=== PATIENT | female | born 1985 ===

== ENCOUNTER 2017-11-02 14:15 | Emergency (ER) | payer MEDICAID ==
[2017-11-02 14:28] VITALS: TEMP 98.7
[2017-11-02] MEDS ORDERED: Lactated Ringer's 1,000 ML IV STA (15:13)
--- NOTE | 2017-11-02 15:30 | ED PDOC ---
HPI: Female Pain Time Seen by Provider: 11/02/17 14:57 Chief Complaint (Nursing): Abdominal Pain History Per: Patient History/Exam Limitations: no limitations Current Symptoms Are (Timing): Still Present Additional Complaint(s): Ms. Griffin is a 32 year old female who presents to ED for vaginal bleeding that started 10 days ago as spotting. Patient states it was around the time she was supposed to get her period and did not think it was abnormal. 6 days ago started to be heavy. Associated with crampy pain and more heaviness yesterday. States she passed tissue. May be having a miscarriage. Denies missing any periods. Normal periods on August and September. Reports some nausea since August associated with stomach bug. Also had diarrhea. States she has been seen by her doctors for her nausea and stomach pain and was on bentyl, zofran, and antacid PMD: Adalberto Richter ([place]) Past Medical History Reviewed: Historical Data, Nursing Documentation, Vital Signs Vital Signs: Last Vital Signs Temp 98.7 F 11/02/17 14:49 Pulse 89 11/02/17 14:49 Resp 20 11/02/17 14:49 BP 120/83 11/02/17 14:49 Pulse Ox 98 11/02/17 14:49 - Medical History Other PMH: Umblicial hernia repair (as in ) - Family History Family History: States: Unknown Family Hx - Social History Current smoker - smoking cessation education provided: Yes Alcohol: Occasional - Allergies Allergies/Adverse Reactions: Allergies Allergy/AdvReac Type Severity Reaction Status Date / Time latex AdvReac RASH Verified 11/02/17 14:49 Review of Systems ROS Statement: Except As Marked, All Systems Reviewed And Found Negative Gastrointestinal: Positive for: Nausea, Abdominal Pain Genitourinary Female: Positive for: Vaginal Bleeding Physical Exam - Reviewed Nursing Documentation Reviewed: Yes Vital Signs Reviewed: Yes - Physical Exam Appears: Positive for: In Acute Distress Head Exam: Positive for: ATRAUMATIC, NORMOCEPHALIC Skin: Positive for: Warm, Dry Cardiovascular/Chest: Positive for: Regular Rate, Rhythm. Negative for: Murmur Respiratory: Positive for: Normal Breath Sounds. Negative for: Accessory Muscle Use, Respiratory Distress Gastrointestinal/Abdominal: Positive for: Soft, Tenderness (Tenderness to bilateral lower quadrants, epigastric and suprapubic areas). Negative for: Mass , Distended, Guarding, Rebound Extremity: Positive for: Normal ROM. Negative for: Deformity Lymphatic: Negative for: Adenopathy Neurologic/Psych: Positive for: Alert. Negative for: Motor/Sensory Deficits - Laboratory Results Result Diagrams: 11/02/17 15:53 11/02/17 15:53 - ECG O2 Sat by Pulse Oximetry: 98 (RA) Pulse Ox Interpretation: Normal Medical Decision Making Medical Decision Making: Time: 15:12 Impression(s): Vaginal Bleeding, Pelvic Pain Differentials include, but not limited to: Miscarriage, abnormal vaginal bleeding, bleeding disorder Plan: - Type and Screen - Beta-hCG, Quantitative - cmp - ED Urine - ED Urine Dipstick - CBC - Partial Thromboplastin Time - Prothrombin Time - Lactated Ringer's 1,000 ml IV 1,000 mls/hr (+) ED Urine Beta hCG, Quantitative reveals 112.55 mIU/mL Time: 16:33 OB Transvaginal Accession No. : [id number] Patient Name / ID : ANNMARIE GRIFFIN / [id number] Exam Date : 11/02/2017 17:09:46 ( Approved ) Study Comment : Sex / Age : F / 32Y Creator : Frantz Marie MD Dictator : Frantz Marie MD Copywriting Intern : Sign Designer : Frantz Marie MD Approver2 : Report Date : 11/02/2017 17:55:21 My Comment : HISTORY: Vaginal bleeding. LMP 10/25/2017. Beta HCG results: 112.5 COMPARISON: None available. TECHNIQUE: Transabdominal, transvaginal. Real -time technique with 2D, duplex and color Doppler. FINDINGS: UTERUS: Measures 4.4 x 5.1 x 8 cm. Normal in size and appearance. No fibroid or other mass lesion seen. ENDOMETRIUM: Measures 6.5 mm in diameter. No ultrasound findings to suggest gestational sac, fluid, debris, mass or polyp or other pathologic process within the endometrium. CERVIX: No cervical abnormality identified.Incidental finding: Nabothian cysts the largest measures less than 1 cm RIGHT OVARY: Measures 2 x 2.7 cm. No solid mass. Normal flow. LEFT OVARY: Measures 1.8 x 2 point a cm. No solid mass. Normal flow. Multiple subcentimeter follicles. FREE FLUID: No significant free fluid noted. OTHER FINDINGS: None. IMPRESSION: No significant or acute findings to account for/ related to the clinical presentation. DW pt findings. Clinical presentation and bloodwork most c/w miscarriage. Pt understands need to return in 48 hours for repeat blood work to confirm. Bleeding and pain precautions given. Scribe Attestation: Documented by Eugene Tyson, acting as a scribe for Millie Shipley MD. Provider Scribe Attestation: All medical record entries made by the Scribe were at my direction and personally dictated by me. I have reviewed the chart and agree that the record accurately reflects my personal performance of the history, physical exam, medical decision making, and the department course for this patient. I have also personally directed, reviewed, and agree with the discharge instructions and disposition. Disposition - Clinical Impression Clinical Impression: Threatened miscarriage Counseled Patient/Family Regarding: Studies Performed, Diagnosis, Need For Followup - Disposition Disposition: Routine/Home Disposition Time: 18:17 Condition: STABLE Additional Instructions: DRINK PLENTY OF HYDRATING FLUIDS AND REST TAKE TYLENOL NEEDED FOR PAIN RETURN IN 48 HOURS FOR REPEAT BLOODWORK. Instructions: Threatened Miscarriage Forms: [facility] ED School/Work Excuse
[2017-11-02 16:02] LABS: BASO # 0.1 K/uL (0.0-0.2); BASO % 0.5 % (0.0-2.0); EOS # 0.2 K/uL (0.0-0.7); EOS % 1.8 % (0.0-4.0); HEMOGLOBIN 13.1 g/dL (12.0-16.0); LYMPH # 2.7 K/uL (1.0-4.3); MEAN CELL VOLUME 85.9 fl (81.0-99.0); MEAN CORPUSCULAR HEMOGLOBIN 28.4 pg (27.0-31.0); MEAN CORPUSCULAR HGB CONC 33.1 g/dL (33.0-37.0); MEAN PLATELET VOLUME 9.1 fl (7.2-11.7); MONO # 0.6 K/uL (0.0-0.8); MONO % 5.4 % (0.0-10.0); NEUT # 7.3 K/uL (1.8-7.0); NEUT % 67.3 % (50.0-75.0); NRBC % 0.1 % (0.0-0.0); RBC 4.62 Mil/uL (3.80-5.20); WHITE BLOOD COUNT 10.8 K/uL (4.8-10.8)
[2017-11-02 16:20] LABS: ALB/GLOB RATIO 1.1 (1.0-2.1); ALBUMIN 4.5 g/dL (3.5-5.0); ALT/SGPT 38 U/L (9-52); AST/SGOT 33 U/L (14-36); BLOOD UREA NITROGEN 8 mg/dl (7-17); CALCIUM 9.6 mg/dL (8.4-10.2); GFR AFRICAN-AMERICAN > 60; GFR NON-AFRICAN AMERICAN > 60
[2017-11-02 16:28] LABS: INR 1.1 (0.9-1.2); PARTIAL THROMBOPLASTIN TIME 32.2 Seconds (25.6-37.1); PROTHROMBIN TIME 11.7 Seconds (9.8-13.1)
--- NOTE | 2017-11-02 17:56 | US ---
HISTORY: Vaginal bleeding. LMP 10/25/2017. Beta HCG results: 112.5 COMPARISON: None available. TECHNIQUE: Transabdominal, transvaginal. Real -time technique with 2D, duplex and color Doppler. FINDINGS: UTERUS: Measures 4.4 x 5.1 x 8 cm. Normal in size and appearance. No fibroid or other mass lesion seen. ENDOMETRIUM: Measures 6.5 mm in diameter. No ultrasound findings to suggest gestational sac, fluid, debris, mass or polyp or other pathologic process within the endometrium. CERVIX: No cervical abnormality identified.Incidental finding: Nabothian cysts the largest measures less than 1 cm RIGHT OVARY: Measures 2 x 2.7 cm. No solid mass. Normal flow. LEFT OVARY: Measures 1.8 x 2 point a cm. No solid mass. Normal flow. Multiple subcentimeter follicles. FREE FLUID: No significant free fluid noted. OTHER FINDINGS: None. IMPRESSION: No significant or acute findings to account for/ related to the clinical presentation.
[2017-11-02 18:07] VITALS: BP 122/77; PULSE 68; RESP 16
[2017-11-02 18:17] VITALS: O2SAT 98
== END 2017-11-02 18:23 | disposition home or self-care (01) ==
LOC: H.ER 14:15 → SUPCPDRO 14:15 → H.ER 18:23
DX: O03.9 Complete or unspecified spontaneous abortion without complication (principal)
CPT/HCPCS: 76817; 80053; 81025; 84702; 85025; 85610; 85730; 86850; 86900; 96360; 99285; J7120

== ENCOUNTER 2017-11-04 12:14 | Emergency (ER) | payer MEDICAID ==
--- NOTE | 2017-11-04 15:01 | ED PDOC ---
HPI: Female Pain Time Seen by Provider: 11/04/17 12:31 Chief Complaint (Nursing): Female Genitourinary Chief Complaint (Provider): Abdominal pain History Per: Patient History/Exam Limitations: no limitations Additional Complaint(s): Pt reports for repeat beta hCG. Was evaluated 2 days ago, states bleeding has resolved but abdominal pain now on L lower side. Denies fever, nausea, vomiting , vaginal discharge. Past Medical History Reviewed: Nursing Documentation, Vital Signs Vital Signs: Last Vital Signs Temp 98.7 F 11/04/17 12:27 Pulse 81 11/04/17 12:27 Resp 16 11/04/17 12:27 BP 117/78 11/04/17 12:27 Pulse Ox 100 11/04/17 12:27 - Medical History PMH: No Chronic Diseases - Family History Family History: States: Unknown Family Hx - Social History Current smoker - smoking cessation education provided: No - Immunization History Hx Tetanus Toxoid Vaccination: No Hx Influenza Vaccination: No Hx Pneumococcal Vaccination: No - Allergies Allergies/Adverse Reactions: Allergies Allergy/AdvReac Type Severity Reaction Status Date / Time latex AdvReac RASH Verified 11/04/17 12:27 Review of Systems Constitutional: Negative for: Fever, Chills Cardiovascular: Negative for: Chest Pain Respiratory: Negative for: Cough, Shortness of Breath Gastrointestinal: Positive for: Abdominal Pain. Negative for: Nausea, Vomiting , Diarrhea Genitourinary Female: Negative for: Dysuria, Hematuria, Vaginal Bleeding Musculoskeletal: Negative for: Back Pain Skin: Negative for: Rash, Lesions Neurological: Negative for: Headache Physical Exam - Reviewed Nursing Documentation Reviewed: Yes Vital Signs Reviewed: Yes - Physical Exam Appears: Positive for: Well, No Acute Distress Skin: Positive for: Normal Color, Warm, Dry Eye Exam: Positive for: Normal appearance, EOMI, PERRL Cardiovascular/Chest: Positive for: Regular Rate, Rhythm Respiratory: Positive for: Normal Breath Sounds Gastrointestinal/Abdominal: Positive for: Bowel Sounds, Soft, Tenderness (LLQ ) . Negative for: Guarding, Rebound Back: Positive for: Normal Inspection. Negative for: L CVA Tenderness, R CVA Tenderness Extremity: Positive for: Normal ROM Neurologic/Psych: Positive for: Alert, Oriented - ECG O2 Sat by Pulse Oximetry: 100 - Physician Consult Information Time Consulting Physican Contacted: 15:08 Physician Contacted: Makayla Hermosillo Outcome Of Conversation: Recommends pelvic ultrasound. Medical Decision Making Medical Decision Makin yo female with LLQ pain. - beta hCG Disposition - Clinical Impression Clinical Impression: Abdominal pain - Disposition [facility] - 11[facility]/17 Disposition Time: 15:00 Condition: STABLE Additional Instructions: Return if not better in 3 days. You likely have a miscarriage, but we must consider ectopic . Return in 1 week or see clinic for repeat ultrasound and beta hcg level. Return if any pain, excessive bleeding, dizziness, weakness, or uncomfortable. Instructions: Miscarriage Forms: [employer] (Belizean) Patient Signed Over To: Hunter Rebolledo
[2017-11-04] MEDS ORDERED: Oxycodone/Acetaminophen 5/325 mg Tab PO STA (15:08)
[2017-11-04] MEDS ORDERED: Oxycodone/Acetaminophen 5/325 mg Tab ONE (15:28)
--- NOTE | 2017-11-04 15:52 | ED PDOC ---
- ECG O2 Sat by Pulse Oximetry: 100 - Progress ED Course And Treament: 1551: Took over care from Dr. Perry. [place] [facility] [place] Pt. possible miscarriage. Dr. Hermosillo wants US. US on 11/02 was with no IUP. Pt. had clots coming out at that time. 1745: Stable. Spoke with Dr. Hermosillo. Made aware of history, findings, clinical presenation. Considering beta dropping and no US findings with bleeding, pt. likely miscarriage. Pt. to repeat beta in 1 week. Pt. pain free. Tolerates po. Ectopic in differential, but less likely. Repeat US in 1 week. Disposition - Clinical Impression Clinical Impression: Miscarriage - POA Present On Arrival: None - Disposition [facility] - 11/06/17 Disposition: Routine/Home Disposition Time: 17:49 Condition: STABLE Additional Instructions: Return if not better in 3 days. You likely have a miscarriage, but we must consider ectopic . Return in 1 week or see clinic for repeat ultrasound and beta hcg level. Return if any pain, excessive bleeding, dizziness, weakness, or uncomfortable. Instructions: Miscarriage Forms: [employer] (Japanese)
[2017-11-04 17:01] VITALS: BP 110/78; RESP 19
--- NOTE | 2017-11-04 17:34 | US ---
PROCEDURE: HISTORY: Vag bleeding, LLQ pain COMPARISON: TECHNIQUE: FINDINGS: The uterus is normal in size. The endometrium measures 3 millimeters. Both ovaries have a normal sonographic appearance. IMPRESSION: No intrauterine seen. Ectopic is not excluded.
[2017-11-04] MEDS ORDERED: Oxycodone/Acetaminophen 5/325 mg Tab PO ONE (18:12)
[2017-11-04 18:19] VITALS: PULSE 78; TEMP 98
[2017-11-06 15:55] VITALS: O2SAT 100
== END 2017-11-04 18:26 | disposition home or self-care (01) ==
LOC: H.ER 12:14
DX: O03.9 Complete or unspecified spontaneous abortion without complication (principal)

== ENCOUNTER 2017-11-11 14:18 | Emergency (ER) | payer MEDICAID ==
--- NOTE | 2017-11-11 15:08 | ED PDOC ---
HPI: Female Pain Time Seen by Provider: 11/11/17 14:25 Chief Complaint (Nursing): Female Genitourinary Chief Complaint (Provider): Repeat beta Additional Complaint(s): Pt reports vaginal bleeding stopped 3 days ago and then started spotting today, mild lower crampy abdominal pain. Denies fever, nausea, vomiting. Abnormal Vaginal Bleeding: Yes Past Medical History Reviewed: Nursing Documentation, Vital Signs Vital Signs: Last Vital Signs Temp 98.2 F 11/11/17 14:21 Pulse 77 11/11/17 14:21 Resp 16 11/11/17 14:21 BP 123/82 11/11/17 14:21 Pulse Ox 99 11/11/17 14:21 - Medical History PMH: No Chronic Diseases - Family History Family History: States: Unknown Family Hx - Immunization History Hx Tetanus Toxoid Vaccination: No Hx Influenza Vaccination: No Hx Pneumococcal Vaccination: No - Allergies Allergies/Adverse Reactions: Allergies Allergy/AdvReac Type Severity Reaction Status Date / Time latex AdvReac RASH Verified 11/04/17 12:27 Review of Systems Constitutional: Negative for: Fever, Chills Cardiovascular: Negative for: Chest Pain Respiratory: Negative for: Cough, Shortness of Breath Gastrointestinal: Positive for: Abdominal Pain. Negative for: Nausea, Vomiting , Diarrhea Genitourinary Female: Positive for: Vaginal Bleeding. Negative for: Dysuria, Hematuria Musculoskeletal: Negative for: Neck Pain, Back Pain Skin: Negative for: Rash, Lesions Neurological: Negative for: Headache Physical Exam - Reviewed Nursing Documentation Reviewed: Yes Vital Signs Reviewed: Yes - Physical Exam Appears: Positive for: Well, No Acute Distress Skin: Positive for: Normal Color, Warm, Dry Eye Exam: Positive for: Normal appearance, EOMI, PERRL Cardiovascular/Chest: Positive for: Regular Rate, Rhythm Respiratory: Positive for: Normal Breath Sounds Gastrointestinal/Abdominal: Positive for: Bowel Sounds, Soft, Tenderness (Mild R suprapubic). Negative for: Distended, Guarding, Rebound Extremity: Positive for: Normal ROM Neurologic/Psych: Positive for: Alert, Oriented - ECG O2 Sat by Pulse Oximetry: 99 - Physician Consult Information Time Consulting Physican Contacted: 15:18 Physician Contacted: Arnoldo Russo Outcome Of Conversation: Repeat beta hCG in 48 hours. Medical Decision Making Medical Decision Makin yo female with vaginal spotting. - beta hCG Disposition - Clinical Impression Clinical Impression: Threatened miscarriage - Disposition [facility] Disposition: Routine/Home Disposition Time: 15:19 Condition: STABLE Additional Instructions: RETURN TO ED IN 48 HOURS FOR REPEAT BETA HCG. Instructions: Threatened Miscarriage Forms: [employer] (Tristanian)
[2017-11-11 15:52] VITALS: BP 126/78; PULSE 78; RESP 19; TEMP 97; O2SAT 98
== END 2017-11-11 15:52 | disposition home or self-care (01) ==
LOC: H.ER 14:18
DX: O20.0 Threatened abortion (principal)

== ENCOUNTER 2017-11-13 12:04 | Emergency (ER) | payer MEDICAID ==
[2017-11-13 12:21] VITALS: RESP 18
--- NOTE | 2017-11-13 13:11 | ED PDOC ---
HPI: General Adult Time Seen by Provider: 11/13/17 12:31 Chief Complaint (Nursing): Abnormal Labs Chief Complaint (Provider): Abnormal Labs History Per: Patient History/Exam Limitations: no limitations Current Symptoms Are (Timing): Better Additional Complaint(s): 32 y/o female presents to the ED for repeat beta-HCG. Patient was initially seen in the ED on 11/04 for heavy vaginal bleeding and right-sided abdominal pain , was diagnosed with threatened miscarriage and advised to return for repeat labs. She reports this pain has resolved and last week she had no bleeding. Now complaining of vaginal spotting and diffuse abdominal cramping that began Friday 11/10. Denies any nausea, vomiting. Patient has not been able to follow up with a certified surgical technician. PMD: Adalberto Richter Past Medical History Reviewed: Historical Data, Nursing Documentation, Vital Signs Vital Signs: Last Vital Signs Temp Pulse 86 11/13/17 12:19 Resp 18 11/13/17 12:19 BP 121/80 11/13/17 12:19 Pulse Ox 100 11/13/17 15:04 - Surgical History Surgical History: No Surg Hx - Family History Family History: States: Unknown Family Hx - Social History Current smoker - smoking cessation education provided: No Alcohol: None Drugs: Denies - Immunization History Hx Tetanus Toxoid Vaccination: No Hx Influenza Vaccination: No Hx Pneumococcal Vaccination: No - Allergies Allergies/Adverse Reactions: Allergies Allergy/AdvReac Type Severity Reaction Status Date / Time latex AdvReac RASH Verified 11/04/17 12:27 Review of Systems ROS Statement: Except As Marked, All Systems Reviewed And Found Negative Gastrointestinal: Positive for: Abdominal Pain (diffuse cramping). Negative for : Nausea, Vomiting Genitourinary Female: Positive for: Vaginal Bleeding (spotting) Physical Exam - Reviewed Nursing Documentation Reviewed: Yes Vital Signs Reviewed: Yes - Physical Exam Appears: Positive for: Well, Non-toxic, No Acute Distress Head Exam: Positive for: ATRAUMATIC, NORMOCEPHALIC Skin: Positive for: Normal Color. Negative for: Rash Eye Exam: Positive for: Normal appearance Neck: Positive for: Normal, Painless ROM Cardiovascular/Chest: Positive for: Regular Rate, Rhythm. Negative for: Bradycardia Respiratory: Positive for: Normal Breath Sounds. Negative for: Accessory Muscle Use, Respiratory Distress Gastrointestinal/Abdominal: Positive for: Soft. Negative for: Tenderness, Guarding, Rebound Back: Positive for: Normal Inspection. Negative for: L CVA Tenderness, R CVA Tenderness, Vertebral Tenderness Extremity: Positive for: Normal ROM. Negative for: Deformity, Swelling Neurologic/Psych: Positive for: Alert, Oriented - Laboratory Results Result Diagrams: 11/13/17 13:15 - ECG O2 Sat by Pulse Oximetry: 100 (RA) Pulse Ox Interpretation: Normal - Progress ED Course And Treament: D/W PATIENT RETURN TO ED IN 2 DAYS FOR REPEAT BETA HCG D/W FAMILY MED RESIDENT TO ARRANGE EARLIER F[facility]. PATIENT COMFORTABLE IN ED. Medical Decision Making Medical Decision Making: Impression: 32 y/o female here for repeat beta-HCG Time: 12:36 Plan: --Beta-HCG, quantitative --CBC Beta-HCG reviewed: 11/04/17: 63.12 11/02/17: 76.90 11/13/17: 101.92 Blood work is otherwise unremarkable. Patient informed of results and counseled regarding diagnosis. Scribe Attestation: Documented by Nesha Molina, acting as a scribe for Rhiannon Rojas PA-C Provider Scribe Attestation: All medical record entries made by the Scribe were at my direction and personally dictated by me. I have reviewed the chart and agree that the record accurately reflects my personal performance of the history, physical exam, medical decision making, and the department course for this patient. I have also personally directed, reviewed, and agree with the discharge instructions and disposition. Disposition - Clinical Impression Clinical Impression: Threatened miscarriage - Patient ED Disposition Is Patient to be Admitted: No Counseled Patient/Family Regarding: Studies Performed, Diagnosis, Need For Followup - Disposition [facility]errals: [facility] [Outside] Disposition: Routine/Home Disposition Time: 15:01 Condition: FAIR Additional Instructions: RETURN IN 2 DAYS FOR REPEAT BEAT HCG Instructions: Threatened Miscarriage Forms: [email or web address] (Lao) - POA Present On Arrival: None
[2017-11-13 13:27] LABS: BASO # 0.1 K/uL (0.0-0.2); BASO % 0.5 % (0.0-2.0); EOS # 0.6 K/uL (0.0-0.7); EOS % 5.3 % (0.0-4.0); HEMOGLOBIN 13.2 g/dL (12.0-16.0); LYMPH # 3.2 K/uL (1.0-4.3); LYMPH % 30.6 % (20.0-40.0); MEAN CELL VOLUME 85.4 fl (81.0-99.0); MEAN CORPUSCULAR HEMOGLOBIN 29.2 pg (27.0-31.0); MEAN CORPUSCULAR HGB CONC 34.1 g/dL (33.0-37.0); MEAN PLATELET VOLUME 8.8 fl (7.2-11.7); MONO # 0.6 K/uL (0.0-0.8); MONO % 5.6 % (0.0-10.0); NEUT # 6.1 K/uL (1.8-7.0); NRBC % 0.3 % (0.0-0.0); RBC 4.53 Mil/uL (3.80-5.20); WHITE BLOOD COUNT 10.6 K/uL (4.8-10.8)
[2017-11-13 16:10] VITALS: BP 122/78; PULSE 81; TEMP 98; O2SAT 99
== END 2017-11-13 16:10 | disposition home or self-care (01) ==
LOC: H.ER 12:04
DX: O20.0 Threatened abortion (principal); Z3A.00 Weeks of gestation of pregnancy not specified; O26.859 Spotting complicating pregnancy, unspecified trimester

== ENCOUNTER 2017-11-15 11:28 | Emergency (ER) | payer MEDICAID ==
[2017-11-15 11:37] VITALS: O2SAT 98
[2017-11-15 12:25] LABS: BASO # 0.1 K/uL (0.0-0.2); BASO % 1.2 % (0.0-2.0); EOS # 0.4 K/uL (0.0-0.7); HEMOGLOBIN 13.4 g/dL (12.0-16.0); LYMPH # 3.5 K/uL (1.0-4.3); LYMPH % 31.4 % (20.0-40.0); MEAN CORPUSCULAR HEMOGLOBIN 29.5 pg (27.0-31.0); MEAN CORPUSCULAR HGB CONC 34.6 g/dL (33.0-37.0); MONO # 0.6 K/uL (0.0-0.8); MONO % 5.5 % (0.0-10.0); NEUT # 6.4 K/uL (1.8-7.0); NEUT % 57.9 % (50.0-75.0); NRBC % 0.1 % (0.0-0.0); RBC 4.54 Mil/uL (3.80-5.20); RED CELL DISTRIBUTION WIDTH 14.2 % (11.5-14.5)
[2017-11-15 13:57] LABS: SQUAMOUS EPITHIAL < 1 /hpf (0-5); URINE BILIRUBIN NEGATIVE (NEGATIVE); URINE BLOOD NEGATIVE (NEGATIVE); URINE CLARITY CLEAR (Clear); URINE COLOR COLORLESS (YELLOW); URINE GLUCOSE (UA) NEG (Normal); URINE LEUKOCYTE ESTERASE NEG Leu/uL (Negative); URINE PROTEIN NEGATIVE (NEGATIVE); URINE UROBILINOGEN 0.2-1.0 mg/dL (0.2-1.0)
--- NOTE | 2017-11-15 14:19 | ED PDOC ---
HPI: General Adult Time Seen by Provider: 11/15/17 11:41 Chief Complaint (Nursing): Abdominal Pain Chief Complaint (Provider): Vaginal spotting History Per: Patient History/Exam Limitations: no limitations Onset/Duration Of Symptoms: Days (x1) Additional Complaint(s): Gaby Lance is a 32 year old female, with no significant past medical history, who presents to the emergency department for vaginal spotting onset since yesterday. Patient 's last normal was in September and was told to come back for repeat blood work and ultrasound. She is currently x4 weeks . HCG gone up from 76 to 101 in 11/13. Patient is back because she was having some vaginal spotting but not heavy periods. She [facility] Patient is A1. She denies any other medical complaints. PMD: Adalberto Richter Past Medical History Reviewed: Historical Data, Nursing Documentation, Vital Signs Vital Signs: Last Vital Signs Temp 98.7 F 11/15/17 11:34 Pulse 73 11/15/17 11:34 Resp 18 11/15/17 11:34 BP 132/80 11/15/17 11:34 Pulse Ox 98 11/15/17 14:31 - Medical History PMH: No Chronic Diseases - Surgical History Surgical History: No Surg Hx - Family History Family History: States: Unknown Family Hx - Social History Current smoker - smoking cessation education provided: Yes (occasionally ) Drugs: Cannabis (x3 per week) - Immunization History Hx Tetanus Toxoid Vaccination: No Hx Influenza Vaccination: No Hx Pneumococcal Vaccination: No - Allergies Allergies/Adverse Reactions: Allergies Allergy/AdvReac Type Severity Reaction Status Date / Time latex AdvReac RASH Verified 11/04/17 12:27 Review of Systems ROS Statement: Except As Marked, All Systems Reviewed And Found Negative Genitourinary Female: Positive for: Other (vaginal spotting) Physical Exam - Reviewed Nursing Documentation Reviewed: Yes Vital Signs Reviewed: Yes - Physical Exam Appears: Positive for: Non-toxic, No Acute Distress Head Exam: Positive for: ATRAUMATIC, NORMOCEPHALIC Skin: Positive for: Normal Color, Warm, Dry Eye Exam: Positive for: Normal appearance Neck: Positive for: Painless ROM Cardiovascular/Chest: Positive for: Regular Rate, Rhythm. Negative for: Murmur Respiratory: Positive for: Normal Breath Sounds. Negative for: Respiratory Distress Gastrointestinal/Abdominal: Positive for: Tenderness (mild suprapubic) Pelvic Exam: Positive for: Tender Adnexa (bimanual exam: mild right ), Other ( Valuation Consultant RN: Carolin Connor). Negative for: No Cerv. Motion Tender, Active Bleeding Back: Positive for: Normal Inspection. Negative for: L CVA Tenderness, R CVA Tenderness, Vertebral Tenderness Extremity: Positive for: Normal ROM (all extremities). Negative for: Deformity , Swelling Neurologic/Psych: Positive for: Alert, Oriented. Negative for: Motor/Sensory Deficits - Laboratory Results Result Diagrams: 11/15/17 12:21 - ECG O2 Sat by Pulse Oximetry: 98 (RA) Pulse Ox Interpretation: Normal Medical Decision Making Medical Decision Making: Initial Impression: vaginal spotting in Initial Plan: --Beta-HCG, Quantitative --CBC w/ differential --Urine C&S --Urinalysis --OB Transvaginal [US] --Reevaluation -Patient is Rh+, from prior visit. 14:16 -HCG 118 gone up from last time, it was 101 14:45 Transvaginal US FINDINGS: UTERUS: Measures 7.9 x 4.1 x 5.0 cm. Normal in size and appearance. No fibroid or other mass lesion seen. ENDOMETRIUM: Measures 14.0 mm in diameter. Prior endometrium measured 3.0 mm. There is still no gestational sac identified within the endometrial cavity with the endometrium appearing mildly inhomogeneous. CERVIX: A stable nabothian cyst identified measuring 8 mm greatest dimension, particularly as compared to prior transvaginal ultrasound 11/02/2017. RIGHT OVARY: Measures 3.0 x 2.5 x 3.5 cm. No solid mass. Normal flow. An 8 mm simple cyst identified at the low right ovary potentially reflecting an additional follicle. Multiple smaller cyst suggest small follicles are seen in the right ovary. LEFT OVARY: Measures 2.9 x 2.6 x 3.0 cm. No solid mass. Normal flow. 1.1 cm simple cyst seen at the left ovary with history of reflecting a dominant follicle though other etiologies are possible. Additional smaller simple cysts are not identified at the left ovary. FREE FLUID: No significant free fluid noted. OTHER FINDINGS: None. IMPRESSION: No intrauterine gestation is defined by the current trans abdominal and transvaginal pelvic ultrasonography. Endometrium is thicker in volume in the interval. Failure of gestation is a consideration though an ectopic is still not excluded completely. Clinically correlate further including serial there arm beta HCG analysis. Ultrasonography may be performed for follow-up in 1 week if clinically warranted. Bilateral small, simple cyst potentially reflecting dominant follicles in either ovary. Other etiologies are possible. No pole is related to either of these cysts. 15:15 Patient is medically stable for discharge home. [facility] is [facility]. Scribe Attestation: Documented by Cyrus Vu, acting as a scribe for Luz Schroeder MD Provider Scribe Attestation: All medical record entries made by the Scribe were at my direction and personally dictated by me. I have reviewed the chart and agree that the record accurately reflects my personal performance of the history, physical exam, medical decision making, and the department course for this patient. I have also personally directed, reviewed, and agree with the discharge instructions and disposition. Disposition - Clinical Impression Clinical Impression: Threatened miscarriage - Disposition Disposition: Routine/Home Disposition Time: 15:15 Condition: IMPROVED Additional Instructions: follow up with your primary gynecology appt within 2 days return to the ED with any worsening or concerning symptoms Instructions: Threatened Miscarriage (DC) Forms: [employer] (Chilean)
--- NOTE | 2017-11-15 14:46 | US ---
HISTORY: vaginal bleeding ; last menstrual period is reported 10/03/2017 suggesting estimated gestational age of 7 weeks 4 days. COMPARISON: Transvaginal obstetric ultrasound exams dated 11/04/2017 and 11/02/2017. TECHNIQUE: Transvaginal pelvic ultrasound was performed with transverse and sagittal projections submitted for interpretation. FINDINGS: UTERUS: Measures 7.9 x 4.1 x 5.0 cm. Normal in size and appearance. No fibroid or other mass lesion seen. ENDOMETRIUM: Measures 14.0 mm in diameter. Prior endometrium measured 3.0 mm. There is still no gestational sac identified within the endometrial cavity with the endometrium appearing mildly inhomogeneous. CERVIX: A stable nabothian cyst identified measuring 8 mm greatest dimension, particularly as compared to prior transvaginal ultrasound 11/02/2017. RIGHT OVARY: Measures 3.0 x 2.5 x 3.5 cm. No solid mass. Normal flow. An 8 mm simple cyst identified at the low right ovary potentially reflecting an additional follicle. Multiple smaller cyst suggest small follicles are seen in the right ovary. LEFT OVARY: Measures 2.9 x 2.6 x 3.0 cm. No solid mass. Normal flow. 1.1 cm simple cyst seen at the left ovary with history of reflecting a dominant follicle though other etiologies are possible. Additional smaller simple cysts are not identified at the left ovary. FREE FLUID: No significant free fluid noted. OTHER FINDINGS: None. IMPRESSION: No intrauterine gestation is defined by the current trans abdominal and transvaginal pelvic ultrasonography. Endometrium is thicker in volume in the interval. Failure of gestation is a consideration though an ectopic is still not excluded completely. Clinically correlate further including serial there arm beta HCG analysis. Ultrasonography may be performed for follow-up in 1 week if clinically warranted. Bilateral small, simple cyst potentially reflecting dominant follicles in either ovary. Other etiologies are possible. No pole is related to either of these cysts.
[2017-11-15 15:20] VITALS: RESP 16
[2017-11-15 15:21] VITALS: BP 128/78; PULSE 67; TEMP 98
== END 2017-11-15 15:15 | disposition home or self-care (01) ==
LOC: H.ER 11:28
DX: O20.0 Threatened abortion (principal); Z3A.01 Less than 8 weeks gestation of pregnancy

== ENCOUNTER 2017-12-08 13:24 | Emergency (ER) | payer MEDICAID ==
[2017-12-08 14:19] VITALS: O2SAT 100
[2017-12-08] MEDS ORDERED: Sodium Chloride 0.9% 1,000 ML IV STA (14:19)
--- NOTE | 2017-12-08 14:21 | ED PDOC ---
HPI: Female Pain Time Seen by Provider: 12/08/17 13:40 Chief Complaint (Nursing): Female Genitourinary Additional Complaint(s): presents with vaginal bleeding since 11/02/17. LMP was 10/15/17. Beta 118 on 11/15/17. Pt states the last few days the bleeding has been heavier the last few days. Past Medical History Reviewed: Historical Data, Nursing Documentation, Vital Signs Vital Signs: Last Vital Signs Temp 98.9 F 12/08/17 14:06 Pulse 77 12/08/17 14:06 Resp 15 12/08/17 14:06 BP 115/62 12/08/17 14:06 Pulse Ox 100 12/08/17 14:06 - Medical History PMH: No Chronic Diseases - Surgical History Surgical History: No Surg Hx - Family History Family History: States: Unknown Family Hx - Living Arrangements Living Arrangements: With Family - Social History Current smoker - smoking cessation education provided: No Alcohol: None Drugs: Denies - Immunization History Hx Tetanus Toxoid Vaccination: No Hx Influenza Vaccination: No Hx Pneumococcal Vaccination: No - Allergies Allergies/Adverse Reactions: Allergies Allergy/AdvReac Type Severity Reaction Status Date / Time latex AdvReac RASH Verified 11/04/17 12:27 Review of Systems ROS Statement: Except As Marked, All Systems Reviewed And Found Negative Constitutional: Negative for: Fever, Chills Gastrointestinal: Negative for: Nausea, Vomiting Genitourinary Female: Positive for: Vaginal Bleeding. Negative for: Pelvic Pain Physical Exam - Reviewed Nursing Documentation Reviewed: Yes Vital Signs Reviewed: Yes - Physical Exam Appears: Positive for: Well, Non-toxic, No Acute Distress Head Exam: Positive for: ATRAUMATIC, NORMAL INSPECTION, NORMOCEPHALIC Skin: Positive for: Normal Color, Warm, DRY Eye Exam: Positive for: Normal appearance ENT: Positive for: Normal ENT Inspection Neck: Positive for: Normal, Painless ROM Cardiovascular/Chest: Positive for: Regular Rate, Rhythm Respiratory: Positive for: Normal Breath Sounds. Negative for: Accessory Muscle Use, Respiratory Distress Gastrointestinal/Abdominal: Positive for: Normal Exam, Soft Back: Positive for: Normal Inspection Extremity: Positive for: Normal ROM Neurologic/Psych: Positive for: Alert, Oriented - Laboratory Results Result Diagrams: 12/08/17 14:30 12/08/17 14:30 - ECG O2 Sat by Pulse Oximetry: 100 Pulse Ox Interpretation: Normal Medical Decision Making Medical Decision Making: US - Normal, endometrium 8mm Beta Hcg - 9 Blood type O (+) Discussed with Dr. Cummings. Follow-up in 1 week. Disposition - Clinical Impression Clinical Impression: Miscarriage - Patient ED Disposition Is Patient to be Admitted: No Counseled Patient/Family Regarding: Diagnosis, Need For Followup - Disposition Disposition: Routine/Home Disposition Time: 17:06 Condition: STABLE Additional Instructions: Please follow-up in 1 week. Instructions: Dealing With Miscarriage Forms: [employer] (Maltese)
[2017-12-08 15:10] LABS: BASO # 0.1 K/uL (0.0-0.2); BASO % 0.5 % (0.0-2.0); EOS # 0.6 K/uL (0.0-0.7); EOS % 5.1 % (0.0-4.0); HEMOGLOBIN 12.6 g/dL (12.0-16.0); LYMPH # 3.6 K/uL (1.0-4.3); LYMPH % 32.4 % (20.0-40.0); MEAN CELL VOLUME 85.8 fl (81.0-99.0); MEAN CORPUSCULAR HEMOGLOBIN 28.6 pg (27.0-31.0); MEAN CORPUSCULAR HGB CONC 33.4 g/dL (33.0-37.0); MEAN PLATELET VOLUME 9.7 fl (7.2-11.7); MONO # 0.4 K/uL (0.0-0.8); MONO % 3.8 % (0.0-10.0); NEUT # 6.5 K/uL (1.8-7.0); NEUT % 58.2 % (50.0-75.0); NRBC % 0.1 % (0.0-0.0); RBC 4.41 Mil/uL (3.80-5.20); WHITE BLOOD COUNT 11.1 K/uL (4.8-10.8)
[2017-12-08 15:14] LABS: ALB/GLOB RATIO 1.2 (1.0-2.1); ALBUMIN 4.1 g/dL (3.5-5.0); ALT/SGPT 31 U/L (9-52); AST/SGOT 25 U/L (14-36); BLOOD UREA NITROGEN 8 mg/dl (7-17); CALCIUM 9.2 mg/dL (8.4-10.2); GFR AFRICAN-AMERICAN > 60; GFR NON-AFRICAN AMERICAN > 60
--- NOTE | 2017-12-08 16:52 | US ---
PROCEDURE: HISTORY: Vaginal bleeding in after miscarriage COMPARISON: 11/15/2017 TECHNIQUE: FINDINGS: The uterus measures 7.6 x 4.9 x 3.8 centimeters. The endometrium measures 8 millimeters. The right ovary measures 3.7 x 3.1 centimeters. Left ovary measures 3.8 x 2.3 centimeters. 2 centimeter left ovarian cyst. There is no free fluid the pelvis. IMPRESSION: 2 centimeter left ovarian cyst.
[2017-12-08 17:44] LABS: SQUAMOUS EPITHIAL < 1 /hpf (0-5); URINE BILIRUBIN NEGATIVE (NEGATIVE); URINE BLOOD NEGATIVE (NEGATIVE); URINE CLARITY CLEAR (Clear); URINE COLOR STRAW (YELLOW); URINE GLUCOSE (UA) NEG (Normal); URINE LEUKOCYTE ESTERASE NEG Leu/uL (Negative); URINE PROTEIN NEGATIVE (NEGATIVE); URINE UROBILINOGEN 0.2-1.0 mg/dL (0.2-1.0)
[2017-12-08 23:22] VITALS: BP 124/78; PULSE 78; RESP 16; TEMP 98.5
== END 2017-12-08 14:10 | disposition home or self-care (01) ==
LOC: H.ER 13:24
DX: O03.9 Complete or unspecified spontaneous abortion without complication (principal)
CPT/HCPCS: 76830; 80053; 81003; 84702; 85025; 87086; 99283; J7040